=== PATIENT | male | born 1990 | race Hispanic/Latino ===

== ENCOUNTER 2016-12-12 18:48 | Emergency (ER) | payer OTHER ==
[~2016-12-12] VITALS: Ht 188 cm; Wt 106.4 kg
[2016-12-12 19:01] VITALS: BP 146/100; PULSE 95; RESP 18; O2SAT 99
--- NOTE | 2016-12-12 19:24 | ED.REPORT ---
HPI-Extremity Problem Upper Date of Service December 12, 2016 ED Provider: History of Present Illness: 26-year-old male with a left first digit avulsion injury. The cut his finger at work today was cutting chicken. He put quick clot on his finger after rinsing it. Not up-to-date on tetanus. Otherwise healthy. Bleeding is controlled upon arrival here Nursing Notes Stated Complaint: CUT FINGER AT WORK L&I Chief Complaint: Laceration Nursing Notes Reviewed: Yes Allergies: Coded Allergies: No Known Allergies (Unverified , 12/12/16) General Time Seen by MD: 19:09 Chief Complaint Finger injury left 2 Hx Obtained From: Patient Arrived By: Walk-in Onset Occurred: Just prior to arrival Symptom Duration: Since onset Caused by: Knife wound Context: Occurred at: Workplace Location: : Finger left 2 Quality: Painful Severity: Current: Mild Severity: Maximum: Moderate Pertinent Negative: Pt denies other symptoms Exacerbated by: Range of motion Immunizations: Unknown Recent Healthcare: No recent doctor visit Similar Sx Previous: No Past Medical History Past Medical History denies Review of Systems Review of Systems Note: Lac tip of L thumb Basic Review of Systems Psychiatric: Normal thought content Constitutional: Denies: Fatigue, Fever Musculoskeletal: Reports: Extremity pain Complete sys rev & neg: except as marked. Physical Exam Initial Vital Signs Vital Signs (First) Date Time Temp Pulse Resp B/P Pulse Ox O2 Delivery O2 Flow Rate FiO2 12/12/16 19:01 37.0 95 18 146/100 99 Room Air Initial VS: Reviewed, Vital signs normal General/Constitutional: Well-developed, Well-nourished Respiratory: Breath sounds normal, Clear to auscultation, No respiratory distress Cardiovascular: Regular rate & rhythm, Heart sounds normal, Intact distal pulses Skin: Warm, Dry, No cyanosis Psychiatric: Mood/affect normal, Behavior normal, Normal thought content Rash / Lesion Notes: Left thumb, small avulsion injury. a few mm of nail and nail bed missing. bleeding controlled. quick clot present and cleansed off. no erythema or purulence Re-Eval/Medical Decision Med Decision/Clinical Course thumb cleansed. dressed by tech. thumb protector applied. work note given, no work tonight Discharge & Departure Shift Change Sign-Out Response to Therapy: Improved Impression: Primary Impression: Laceration Disposition: Home Patient Instructions: Laceration (GEN) Additional Instructions: Wear bandage for 24 hours then change one to 2 times a day as needed as it gets dirty. Wear gloves at work. Limited use of hand as needed. Go back to work tomorrow. Do not soak finger, no baths or washing dishes. The bandage gets wet change immediately. look at finger daily and watch for signs of infection including redness, purulent drainage or increasing pain and swelling and return immediately if this occurs. Follow-up later this week if any concerns with your doctor. Ibuprofen or Tylenol as needed for pain EDSupervising Provider for APC: Aníbal Putnam Linnea K ARNP December 12, 2016 19:24
[2016-12-12] MEDS ORDERED: TdaP Vaccine 0.5 mL Inj IM ONE (19:25)
[2016-12-12 19:50] VITALS: PULSE 91; O2SAT 96
== END 2016-12-12 19:51 | disposition home or self-care (01) ==
LOC: SED 18:48
DX: S61.012A Laceration without foreign body of left thumb without damage to nail, initial encounter (principal); W26.0XXA Contact with knife, initial encounter; Y92.59 Other trade areas as the place of occurrence of the external cause; Y93.G1 Activity, food preparation and clean up; Y99.0 Civilian activity done for income or pay; Z23 Encounter for immunization

== ENCOUNTER 2016-12-13 18:22 | Emergency (ER) | payer OTHER ==
[~2016-12-13] VITALS: Ht 188 cm; Wt 106.4 kg
[2016-12-13 18:26] VITALS: BP 140/90; PULSE 89; RESP 16; O2SAT 96
[2016-12-13] MEDS ORDERED: diphenhydrAMINE 25 mg Capsule PO ONE (20:35)
--- NOTE | 2016-12-13 21:02 | ED.REPORT ---
HPI-General Illness Date of Service December 13, 2016 ED Provider: Doug De La Cruz MD Pt is a healthy 26 y/o male presenting to the ED c/o rash over left forearm onset today. The patient received an IM TDAP vaccination yesterday in his right upper arm and now is experiencing subjective swelling of the left arm and rash over the left arm. He denies swelling of the neck, lip, tongue, or throat. He denies nausea, vomiting, SOB. Nursing Notes Stated Complaint: POSS REACTION TO TETANUS SHOT Chief Complaint: Skin Rash/Abscess Nursing Notes Reviewed: Yes Allergies: Coded Allergies: No Known Allergies (Unverified , 12/13/16) General Time Seen by MD: 20:34 Chief Complaint Other (rash) Hx Obtained From: Patient Arrived By: Walk-in Sudden in Onset?: No Onset Occurred: 1 - 4 hours ago Symptom Duration: Since onset Severity: Current: No pain currently Severity: Maximum: No pain Similar Sx Previous: No Past Medical History Past Medical History denies Past Surgical History Denies Smoking History Unknown if Ever Smoker Ambulatory Status Independent Review of Systems Full Review of Systems Constitutional: Denies: Chills, Fever Ears / Nose / Throat: Denies: Sore throat, Throat swelling, Tongue swelling, Voice change Respiratory: Denies: Shortness of breath GI: Denies: Nausea, Vomiting Skin: Reports Rash Complete sys rev & neg: except as marked. Physical Exam Vital Signs Vital Signs Date Time Temp Pulse Resp B/P Pulse Ox O2 Delivery O2 Flow Rate FiO2 12/13/16 21:22 36.6 89 16 132/87 96 Room Air 12/13/16 18:26 36.6 89 16 140/90 96 Room Air Initial VS: Reviewed Head / Eyes: Atraumatic, Normocephalic, PERRL Neck: Supple, Full range of motion Respiratory: Breath sounds normal, Clear to auscultation, No respiratory distress Cardiovascular: Regular rate & rhythm, Heart sounds normal, Intact distal pulses Abdomen / GI: Soft, Non-tender Extremities: Vascular intact, Neuro intact, No swelling, No tenderness Neurologic: Alert, Oriented, Nonfocal Psychiatric: Mood/affect normal, Behavior normal, Normal thought content General/Constitutional: Awake, Alert, No acute distress, Well appearing, Cooperative, Not toxic appearing ENT: Atraumatic, Airway patent, Mucous membranes moist, Pharynx NL, No pooling of secretions, No facial swelling Skin: Atraumatic, Warm, Dry, Intact, Turgor NL Color / Condition: Positive: Rash present Rash / Lesion Notes: scattered mild urticarial patches bilateral forearms Re-Eval/Medical Decision Med Decision/Clinical Course Pt is a healthy 26 y/o male presenting to the ED c/o rash over left forearm onset today. The patient received an IM TDAP vaccination yesterday in his right upper arm and now is experiencing subjective swelling of the left arm and rash over the left arm. He denies swelling of the neck, lip, tongue, or throat. He denies nausea, vomiting, SOB. Here in the emergency department the patient is afebrile with stable vital signs examination as above. There are some mild urticarial plaques. Improved after being given Benadryl. No evidence of anaphylaxis. No evidence of cellulitis or abscess. I feel the patient is appropriate for outpatient management and follow-up with his primary care physician. Prior to discharge follow-up and return precautions were reviewed in detail with the patient who verbalized understanding and agreement with the plan. The patient was discharged in stable condition. Time of Eval: 21:06 Re-Evaluation/Progress Note: Pt rechecked. Informed pt of plan for treatment. Pt understands and agrees with plan for treatment. F/U instructions and RTER warnings given. All questions addressed. Counseled Regarding: Diagnosis, Need for follow-up, When/why to return to ED Discharge & Departure Primary Impression: Urticaria Additional Impression: Adverse reaction to drug Encounter type: initial encounter Qualified Code: T88.7XXA - Unspecified adverse effect of drug or medicament, initial encounter Disposition: Home Discharge Condition All VS Reviewed: Yes Condition: Stable Patient Instructions: Acute Rash (GEN) Additional Instructions: The rash may be caused by the vaccine injection although this is not clear at this time. Your physical exam is reassuring and I do not suspect there is a dangerous condition or reaction present at the moment. Take Benadryl as directed for rash or itching. Return to the emergency department if you experience throat, tongue, face, or lip swelling, trouble breathing, vomiting, or for other concerning symptoms. Follow-up with your primary care doctor in 1 week. Referrals: [facility] (PCP) Scribe Attestation Portions of this note were transcribed by Chau Sanchez. I, Dr. De La Cruz personally performed the history, physical exam and medical decision-making; I reviewed and confirmed the accuracy of the information in the transcribed note. Signed by Kathrin Reynolds, 12/13/162129 Doug De La Cruz MD December 13, 2016 21:02 CHAU SANCHEZ December 13, 2016 21:09
[2016-12-13 21:22] VITALS: BP 132/87; PULSE 89; RESP 16; O2SAT 96
== END 2016-12-13 21:24 | disposition home or self-care (01) ==
LOC: SED 18:22
DX: L50.9 Urticaria, unspecified (principal); M79.89 Other specified soft tissue disorders; T50.A15A Adverse effect of pertussis vaccine, including combinations with a pertussis component, initial encounter; X58.XXXA Exposure to other specified factors, initial encounter; Y93.9 Activity, unspecified; Y92.9 Unspecified place or not applicable; Y99.9 Unspecified external cause status